=== PATIENT | female | born 1950 | race Caucasian/White ===

== ENCOUNTER → 2016-08-30 | Outpatient (CLI) | payer OTHER | LOC: MMPC 09:00 | PROVIDERS: ATTEND Physician Assistant Medical | DX: S60.452A Superficial foreign body of right middle finger, initial encounter (principal); Z23 Encounter for immunization | CPT/HCPCS: 90715; 99213; G0463 ==

== ENCOUNTER → 2016-09-19 | Outpatient (CLI) | payer OTHER | LOC: US 12:42 | PROVIDERS: ATTEND Nurse Practitioner Family | DX: R01.1 Cardiac murmur, unspecified (principal); R53.83 Other fatigue; I35.8 Other nonrheumatic aortic valve disorders | CPT/HCPCS: 93306 ==

== ENCOUNTER → 2017-04-12 | Outpatient (CLI) | payer OTHER ==
[2017-04-12 11:00] LABS: BLOOD UREA NITROGEN 16 mg/dL (7-22); BUN/CREATININE RATIO 22.85 (6-20); CALCIUM 9.6 mg/dL (8.7-10.7); EST GLOMERULAR FILTRATION > 60 (>60 ml/min/1.73m(2)); SERUM ALBUMIN 4.4 g/dL (3.5-4.8)
[2017-04-12 11:10] LABS: HEMATOCRIT 46.7 % (37.0-47.0); HEMOGLOBIN 15.6 g/dL (12.0-16.0); MEAN CORPUSCULAR HGB CONC 33.4 g/dL (33-37); MEAN CORPUSCULAR VOLUME 92.7 FL (81-99); MEAN PLATELET VOLUME 11.2 FL (7.4-12.2); RED BLOOD COUNT 5.04 10^6/uL (4.20-5.40)
[2017-04-12 11:17] LABS: FREE T4 (FREE THYROXINE) 1.3 ng/dL (0.93-1.71)
== END ==
LOC: LAB 10:20
PROVIDERS: ATTEND Obstetrics & Gynecology Gynecology
DX: R10.84 Generalized abdominal pain (principal); Z85.850 Personal history of malignant neoplasm of thyroid
CPT/HCPCS: 36415; 80053; 84439; 84443; 85027

== ENCOUNTER → 2017-04-21 | Outpatient (CLI) | payer OTHER ==
--- NOTE | 2017-04-21 13:22 | DI ---
CT ABDOMEN SCAN WITH IV CONTRAST, 04/21/2017 11:00 AM : Clinical History: Right lower quadrant pain. Previous Exam: None at this facility. Scans are performed from the lower lung bases through the liver and kidneys with IV contrast. 95 ml o f Isovue 300 was injected IV. Low density oral barium contrast (Volumen - low density CT enterography oral contrast) was administered for all phases of the exam. The lung bases are clear. The liver is normal. The patient is status post cholecystectomy and the com mon bile duct measures 7 mm. There is no abnormality of the spleen, pancreas, and adrenal glands. Bot h kidneys are normal in size, shape, position and contour. There is no hydronephrosis or hydroureter. No renal or ureteral calculi are present. There are no abnormal retrocrural or periaortic nodes. No ascites is present. READING: Normal CT abdomen scan. CT PELVIS SCAN WITH IV CONTRAST, 04/21/2017 11:00 AM: Clinical History: See above. Previous Exam: None at this facility. Scans are performed from just superior to the umbilicus to the symphysis pubis with IV contrast. This is the same bolus of contrast used for the CT scans of the abdomen. Scans through the lower abdomen and pelvis show no masses or abnormal fluid collections. There is no adenopathy. The appendix is normal. The small bowel, terminal ileum, and ileocecal valve are normal. The colon is also normal. There is no umbilical hernia, but there is a small hernia just superior to the umbilicus in the midline through which only mesenteric fat has herniated. The patient is status p ost hysterectomy and bilateral salpingo-oophorectomy. READING: Normal CT scan of the pelvis. There is a small ventral hernia located just superior to the umbilicus that contains only mesenteric fat.
== END ==
LOC: CT 08:42
PROVIDERS: ATTEND Obstetrics & Gynecology Gynecology
DX: R10.31 Right lower quadrant pain (principal)
CPT/HCPCS: 74177